=== PATIENT | male | born 1940 | race Caucasian/White ===

== ENCOUNTER → 2017-01-22 | Outpatient (CLI) | payer MEDICARE, BC ==
--- NOTE | 2017-01-22 11:11 | PCVCIMAG ---
APPROVED REPORT Indications Stenosis Risk Factors Hypertension: Surgery/Intervention Endarterectomy: left Doppler Spectral Velocity Analysis PSV / EDVPSV / EDV ECA (R) 384 / 34 cm/sECA (L) 82 / 10 cm/s dICA (R) 60 / 16 cm/sdICA (L) 52 / 15 cm/s Arlet (R) 128 / 31 cm/smICA (L) 56 / 14 cm/s pICA (R) 156 / 38 cm/spICA (L) 85 / 18 cm/s Bulb (R) 66 / 14 cm/sBulb (L) 64 / 14 cm/s dCCA (R) 50 / 12 cm/sdCCA (L) 90 / 17 cm/s mCCA (R) 57 / 13 cm/smCCA (L) 93 / 20 cm/s Vert (R) 53 / 9 cm/sVert (L) 38 / 8 cm/s ICA/CCA 3.12ICA/CCA 0.94 Basic Measurements Blood Pressure: Pulses: Right Left RightLeft Brachial(Sitting) 128/41vyFy306/82mmHgTemporal Real Time B-Mode Imaging Vert. (R)AntegradeVert. (L)Antegrade Findings The right carotid bulb has moderately severe calcified plaque. The right proximal internal carotid artery shows 60-70% stenosis. The right common carotid artery shows no significant stenosis. The right external carotid artery shows >90% stenosis. The left carotid bulb has mild plaque. The left proximal internal carotid artery shows no significant stenosis, changes of carotid endarterectomy. The left common carotid artery shows no significant stenosis. The left external carotid artery shows no significant stenosis. Conclusion 1. Right internal carotid artery stenosis (60-70%) 2. Left internal carotid artery plaquing; prior CEA 3. Antegrade vertebral flow
== END | disposition home or self-care (01) ==
LOC: PCVCIMAG 09:50
PROVIDERS: ATTEND Internal Medicine
DX: I65.23 Occlusion and stenosis of bilateral carotid arteries (principal); R01.1 Cardiac murmur, unspecified; R78.5 Finding of other psychotropic drug in blood; M19.90 Unspecified osteoarthritis, unspecified site; Z96.651 Presence of right artificial knee joint; Z96.611 Presence of right artificial shoulder joint; Z79.82 Long term (current) use of aspirin; Z79.899 Other long term (current) drug therapy; Z87.891 Personal history of nicotine dependence
CPT/HCPCS: 80061; 93005; 93880; G0463

== ENCOUNTER → 2017-07-22 | Outpatient (CLI) | payer MEDICARE, BC | END | disposition home or self-care (01) | LOC: PCVCIMAG 08:52 | DX: I08.8 Other rheumatic multiple valve diseases (principal); I10 Essential (primary) hypertension; E78.5 Hyperlipidemia, unspecified; I65.23 Occlusion and stenosis of bilateral carotid arteries; R01.1 Cardiac murmur, unspecified; Z79.82 Long term (current) use of aspirin; Z79.899 Other long term (current) drug therapy | CPT/HCPCS: 80061; 93005; 93306; G0463 ==

== ENCOUNTER → 2018-09-16 | Outpatient (CLI) | payer MEDICARE, BC ==
--- NOTE | 2018-09-16 10:54 | PCVCIMAG ---
APPROVED REPORT Study performed: 09/16/2018 09:06:55 EXAM: Comprehensive 2D, Doppler, and color-flow Echocardiogram Patient Location: Echo lab Status: routine BSA: 1.99 HR: 55 bpmBP: 124/70 mmHg Rhythm: Bradycardia Other Information Study Quality: Adequate Risk Factors: Cardiac Risk Factors: HTN Indications Murmur aortic stenosis 2D Dimensions IVSd: 10.02 (7-11mm)LVOT Diam: 22.42 (18-24mm) LVDd: 49.66 mm PWd: 10.69 (7-11mm)Ascending Ao: 35.73 (22-36mm) LVDs: 38.10 (25-40mm) Left Atrium: 46.43 (27-40mm) Aortic Root: 30.64 mm LV Single Plane 4CH: 67.60 % LV Single Plane 2CH: 63.70 % Biplane EF: 68.6 % Volumes Left Atrial Volume (Systole) Single Plane 4CH: 81.95 mLSingle Plane 2CH: 92.63 mL LA ESV Index: 45.00 mL/m2 Aortic Valve AoV Peak Bakari.: 4.20 m/s AO Peak Gr.: 70.57 mmHgLVOT Max P.91 mmHg AO Mean Gr.: 34.60 mmHgLVOT Mean P.57 mmHg AO V2 Mean: 2.83 m/sLVOT Max V: 1.31 m/s AO V2 VTI: 108.72 cmLVOT Mean V: 0.88 m/s JUAN ANTONIO (VTI): 1.18 [id number] V1 VTI: 32.63 cm UJAN ANTONIO Vmax: 1.23 cm2 AI Vmax: 4.86 m/sSV (LVOT): 128.74 mL AI [place]: 3.34 m/s2 AI PHT: 421.51 ms Mitral Valve E/A Ratio: 1.3 MV Decel. Time: 292.35 ms MV E Max Bakari.: 0.83 m/s MV A Bakari.: 0.65 m/s IVRT: 86.51 ms Pulmonary Valve PV Peak Bakari.: 1.26 m/sPV Peak Gr.: 6.32 mmHg Pulmonary Vein P Vein S: 0.62 m/sP Vein A: 0.35 m/s P Vein D: 0.61 m/sP Vein A Dur.: 170.7 msec P Vein S/D Ratio: 1.02 Tricuspid Valve TR Peak Bakari.: 2.74 m/s TR Peak Gr.: 29.97 mmHg Left Ventricle The left ventricle is normal size. There is normal LV segmental wall motion. There is normal left ventricular wall thickness. Left ventricular systolic function is normal. The left ventricular ejection fraction is within the normal range. LVEF is 65%. Moderate diastolic dysfunction is present (pseudonormal filling). Right Ventricle The right ventricle is normal size. The right ventricular systolic function is normal. Atria Left atrium is moderately dilated. Right atrium is moderately dilated. Aortic Valve The aortic valve is severely calcified. Mild aortic regurgitation. There is moderate valvular aortic stenosis. Calculated aortic valve area is 1.2 cm2 with maximum pressure gradient of 71 mmHg and mean pressure gradient of 35 mmHg. Mitral Valve The mitral valve is normal in structure. Mild mitral regurgitation. No evidence of mitral valve stenosis. Tricuspid Valve The tricuspid valve is normal in structure. Mild tricuspid regurgitation with PAP of 35 mmHg. Pulmonic Valve The pulmonary valve is normal in structure. Moderate pulmonic regurgitation. Great Vessels The aortic root is normal in size. IVC is normal in size and collapses >50% with inspiration. Pericardium There is no pericardial effusion. There is no pleural effusion. <Conclusion> Left ventricular systolic function is normal. There is normal LV segmental wall motion. LVEF is 65%. Moderate diastolic dysfunction Both atria are moderately dilated. The aortic valve is severely calcified, moderate valvular aortic stenosis. Mild insufficiency Calculated aortic valve area is 1.2 cm2 with maximum pressure gradient of 71 mmHg and mean pressure gradient of 35 mmHg. The mitral valve is normal in structure. Mild mitral regurgitation. Mild tricuspid regurgitation with pulmonary artery pressure of 35 mmHg. There is no pericardial effusion.
== END | disposition home or self-care (01) ==
LOC: PCVCIMAG 09:19
PROVIDERS: ATTEND Internal Medicine
DX: I08.3 Combined rheumatic disorders of mitral, aortic and tricuspid valves (principal); R01.1 Cardiac murmur, unspecified; E78.5 Hyperlipidemia, unspecified; I65.23 Occlusion and stenosis of bilateral carotid arteries; Z87.891 Personal history of nicotine dependence
CPT/HCPCS: 36415; 80061; 93005; 93306; G0463

== ENCOUNTER → 2019-03-17 | Outpatient (CLI) | payer MEDICARE, BC ==
--- NOTE | 2019-03-17 11:02 | PCVCIMAG ---
APPROVED REPORT Indications Stenosis Risk Factors Hypertension: Surgery/Intervention Endarterectomy: left Doppler Spectral Velocity Analysis PSV / EDVPSV / EDV ECA (R) 263 / 33 cm/sECA (L) 62 / 11 cm/s dICA (R) 91 / 22 cm/sdICA (L) 37 / 10 cm/s Arlet (R) 96 / 17 cm/smICA (L) 76 / 19 cm/s pICA (R) 141 / 25 cm/spICA (L) 78 / 13 cm/s Bulb (R) 49 / 13 cm/sBulb (L) 76 / 12 cm/s dCCA (R) 45 / 8 cm/sdCCA (L) 76 / 15 cm/s mCCA (R) 55 / 10 cm/smCCA (L) 77 / 18 cm/s Vert (R) 80 / 14 cm/sVert (L) 47 / 12 cm/s ICA/CCA 3.13ICA/CCA 1.03 Basic Measurements Blood Pressure: Pulses: Right Left RightLeft Brachial(Sitting) 154/41pyHn004/86mmHgTemporal Real Time B-Mode Imaging Vert. (R)AntegradeVert. (L)Antegrade Findings RIGHT CAROTID: The carotid bulb has moderately severe plaque. The proximal internal carotid artery shows 50% stenosis. The common carotid artery shows no significant stenosis. The external carotid artery shows 80% stenosis. LEFT CAROTID: The carotid bulb has mild plaque. The proximal internal carotid artery shows <40% stenosis. The common carotid artery shows no significant stenosis. The external carotid artery shows no significant stenosis. Conclusion 50% stenosis of the right internal carotid artery with moderately severe plaque. <40% stenosis of the left internal carotid artery with mild plaque. Little overall change since January 2018 study.
== END | disposition home or self-care (01) ==
LOC: PCVCIMAG 10:01
PROVIDERS: ATTEND Internal Medicine
DX: I65.23 Occlusion and stenosis of bilateral carotid arteries (principal); I35.0 Nonrheumatic aortic (valve) stenosis; E78.5 Hyperlipidemia, unspecified; I10 Essential (primary) hypertension; C69.62 Malignant neoplasm of left orbit; I47.1 Supraventricular tachycardia; E78.00 Pure hypercholesterolemia, unspecified; Z87.891 Personal history of nicotine dependence; Z79.899 Other long term (current) drug therapy
CPT/HCPCS: 36415; 80061; 93005; 93880; G0463